=== PATIENT | female | born 2005 | race Caucasian/White ===

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

== ENCOUNTER 2024-10-13 14:45 | Emergency (ER) | payer OTHER ==
[2024-10-13] MEDS ORDERED: Ibuprofen 800 MG TAB ONE (16:17)
== END 2024-10-13 16:30 | disposition home or self-care (01) ==
LOC: ERS 14:45
DX: S06.0X9A Concussion with loss of consciousness of unspecified duration, initial encounter (principal); S50.311A Abrasion of right elbow, initial encounter; S00.01XA Abrasion of scalp, initial encounter; V89.2XXA Person injured in unspecified motor-vehicle accident, traffic, initial encounter; Y93.89 Activity, other specified
CPT/HCPCS: 70450; 72125